=== PATIENT | male | born 1950 | race Caucasian/White ===

== ENCOUNTER 2018-06-17 21:38 | Emergency (ER) | payer OTHER ==
[~2018-06-17] VITALS: Ht 177.8 cm; Wt 66.7 kg
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
--- NOTE | 2018-06-17 22:05 | NUR ---
PT TAKEN TO CT.
--- NOTE | 2018-06-17 22:12 | NUR ---
PT BACK FROM CT.
--- NOTE | 2018-06-17 22:30 | NUR ---
Patient is resting comfortably in bed. VSS. NAD NOTED. PT FAMILY AT BEDSIDE.
--- NOTE | 2018-06-17 23:24 | NUR ---
Patient discharged to home in stable condition. Written and verbal after care instructions given. Patient verbalizes understanding of instruction. PT AMBULATORY WITH STEADY GAIT.
[2018-06-17 23:27] VITALS: BP 122/89
== END 2018-06-17 23:28 | disposition home or self-care (01) ==
LOC: ER 21:41
DX: S00.12XA Contusion of left eyelid and periocular area, initial encounter (principal); I25.2 Old myocardial infarction; Z95.5 Presence of coronary angioplasty implant and graft; Z95.0 Presence of cardiac pacemaker; W01.198A Fall on same level from slipping, tripping and stumbling with subsequent striking against other object, initial encounter; Y93.01 Activity, walking, marching and hiking; Y92.89 Other specified places as the place of occurrence of the external cause; Y99.8 Other external cause status
CPT/HCPCS: 70450-TC